=== PATIENT | female | born 1995 | race Caucasian/White ===

== ENCOUNTER 2022-01-25 11:52 | Inpatient (IN) | payer OTHER ==
[2022-01-25] MEDS ORDERED: Nalbuphine HCl 10 MG/ 1ML Amp IVPUSH PRN (12:01)
[2022-01-25] MEDS ORDERED: Ondansetron 4 MG/2 ML SDV IVPUSH PRN (12:01)
[2022-01-25] MEDS ORDERED: Oxytocin/Lactated Ringers 10 UNIT/1,000 ML BAG IV SCH (12:15)
[2022-01-25] MEDS: Lactated Ringers 1,000 ML IV SCH ×2 (12:28→18:50)
[2022-01-25] MEDS: Oxytocin/Lactated Ringers 10 UNIT/1,000 ML BAG IV SCH (12:29)
[2022-01-25] MEDS ORDERED: ePHEDrine 50 MG/ML SDV IVPUSH PRN (15:04)
[2022-01-25] MEDS ORDERED: diphenhydrAMINE 50 MG/ML SDV IVPUSH PRN (15:04)
[2022-01-25] MEDS: fentaNYL 100 MCG/2 ML SDV EPIDUR PRN (18:02)
[2022-01-25] MEDS: Bupivacaine/fentaNYL/NS 100 ML Bag EPIDUR PRN (18:02)
[2022-01-25] MEDS ORDERED: Sodium Chloride 0.9% 10 ML Syringe FLUSH SCH (21:00)
[2022-01-26] MEDS: Oxytocin/Lactated Ringers 10 UNIT/1,000 ML BAG IV SCH (02:26)
[2022-01-26] MEDS: Lactated Ringers 1,000 ML IV SCH ×2 (02:27→02:28)
[2022-01-26] MEDS: Bupivacaine/fentaNYL/NS 100 ML Bag EPIDUR PRN ×2 (02:58→12:27)
[2022-01-26] MEDS: fentaNYL 100 MCG/2 ML SDV EPIDUR PRN (03:07)
[2022-01-26] MEDS ORDERED: Acetaminophen 325 MG Tab PO ONE (03:13)
[2022-01-26] MEDS ORDERED: Oxytocin/Lactated Ringers 20 UNIT/1,000 ML BAG IV SCH (10:00)
[2022-01-26] MEDS ORDERED: Docusate Sodium 100 MG Cap PO PRN (15:59)
[2022-01-26] MEDS ORDERED: Witch Hazel Medicated Pads 40/Jar TOP PRN (15:59)
[2022-01-26] MEDS ORDERED: Acetaminophen/oxyCODONE 325-5 MG Tab PO PRN (15:59)
[2022-01-26] MEDS ORDERED: Benzocaine/Menthol 20%-0.5% Spray 78 GM Cannister TOP PRN (15:59)
[2022-01-26] MEDS ORDERED: Bupivacaine 0.25% 10 ML SDV ONE (16:00)
[2022-01-26] MEDS: Ibuprofen 600 MG Tab PO PRN ×2 (16:25→20:33)
[2022-01-26] MEDS: Acetaminophen 325 MG Tab PO PRN (20:35)
[2022-01-27] MEDS: Acetaminophen 325 MG Tab PO PRN (01:43)
[2022-01-27] MEDS: Ibuprofen 600 MG Tab PO PRN ×3 (01:44→15:50)
[2022-01-27] MEDS: Calcium Carbonate 600 MG Tab PO SCH (08:38)
[2022-01-27] MEDS: Ferrous Sulfate 324 MG Tab.EC PO SCH (08:38)
[2022-01-27] MEDS: Prenatal Multivitamin with Calcium/Folic Acid/Iron Tab PO SCH (08:38)
[2022-01-28] MEDS: Ibuprofen 600 MG Tab PO PRN ×2 (02:19→08:09)
[2022-01-28] MEDS: Ferrous Sulfate 324 MG Tab.EC PO SCH (10:14)
[2022-01-28] MEDS: Calcium Carbonate 600 MG Tab PO SCH (10:14)
[2022-01-28] MEDS: Prenatal Multivitamin with Calcium/Folic Acid/Iron Tab PO SCH (10:15)
== END 2022-01-28 10:30 | disposition home or self-care (01) | DRG 807 ==
LOC: JD.OBCHECK 11:52 → JD.OB 11:53 → JD.OBCHECK 12:05 → JD.OB 12:06 → OBSVTOIN 01-26 15:16 → JD.OB 01-26 15:17
PROVIDERS: ADMIT Obstetrics & Gynecology; ATTEND Obstetrics & Gynecology
PROC: 10907ZC Drainage of Amniotic Fluid, Therapeutic from Products of Conception, Via Natural or Artificial Opening (ICD-10-PCS; principal; 2022-01-26)
PROC: 0KQM0ZZ Repair Perineum Muscle, Open Approach (ICD-10-PCS; principal; 2022-01-26)
PROC: 3E0R3BZ Introduction of Anesthetic Agent into Spinal Canal, Percutaneous Approach (ICD-10-PCS; principal; 2022-01-26)
PROC: 10E0XZZ Delivery of Products of Conception, External Approach (ICD-10-PCS; principal; 2022-01-26)
PROC: 0U7C7ZZ Dilation of Cervix, Via Natural or Artificial Opening (ICD-10-PCS; principal; 2022-01-26)
PROC: 10H07YZ Insertion of Other Device into Products of Conception, Via Natural or Artificial Opening (ICD-10-PCS; principal; 2022-01-26)
PROC: 3E033VJ Introduction of Other Hormone into Peripheral Vein, Percutaneous Approach (ICD-10-PCS; principal; 2022-01-26)
DX: O62.2 Other uterine inertia (principal); Z37.0 Single live birth; Z3A.39 39 weeks gestation of pregnancy; O77.0 Labor and delivery complicated by meconium in amniotic fluid; O69.81X0 Labor and delivery complicated by cord around neck, without compression, not applicable or unspecified; O70.1 Second degree perineal laceration during delivery; Z91.018 Allergy to other foods
CPT/HCPCS: 36415; 51702; 59025; 59409; 85025; 86592; A9270-GY; C1726; J2590; J3010; J3490; J7120

== ENCOUNTER 2024-03-07 11:56 | Inpatient (IN) | payer BC, OTHER ==
[~2024-03-07 11:56] MED LIST: Ropivacaine 0.2% PF 2 MG/ML 20 ML SDV ONE
[2024-03-07] MEDS ORDERED: Calcium Carbonate 500 MG Tab.Chew PO PRN (12:48)
[2024-03-07] MEDS ORDERED: Lidocaine 1% 50 ML MDV INJECT PRN (12:48)
[2024-03-07] MEDS ORDERED: Ondansetron 4 MG/2 ML SDV IVPUSH PRN (12:48)
[2024-03-07] MEDS ORDERED: Oxytocin/0.9 % Sodium Chloride 30 UNIT/500 ML BAG IV SCH (13:00)
[2024-03-07 13:08] LABS: BASOPHILS PERCENT AUTO 0.2 % (0.0-1.0); EOSINOPHILS PERCENT AUTO 0.3 % (0.0-6.0); HEMATOCRIT 33.1 % (37.0-47.0); HEMOGLOBIN 10.8 gm/dl (12.0-16.0); IMMATURE GRAN ABSOLUTE AUTO 0.06 K/mm3 (0.00-0.05); IMMATURE GRAN PERCENT AUTO 0.5 % (0.0-0.4); LYMPHOCYTES ABSOLUTE AUTO 1.9 K/mm3 (1.0-4.8); MEAN CORPUSCULAR HEMOGLOBIN 30.3 pg (28.0-32.0); MEAN CORPUSCULAR HGB CONC 32.6 g/dl (32.0-36.0); MEAN CORPUSCULAR VOLUME 92.7 fl (83.0-99.0); MEAN PLATELET VOLUME 12.9 fl (9.4-12.3); MONOCYTES ABSOLUTE AUTO 0.6 K/mm3 (0.0-0.8); MONOCYTES PERCENT AUTO 4.9 % (0.0-8.0); NEUTROPHILS ABSOLUTE AUTO 9.8 K/mm3 (1.8-7.7); NEUTROPHILS PERCENT AUTO 79.1 % (41.0-71.0); PLATELET COUNT,PLT 162 K/mm3 (150-400); RED BLOOD CELL COUNT 3.57 M/mm3 (4.10-5.30); WHITE BLOOD CELL COUNT,WBC 12.41 K/mm3 (3.9-11.3)
[2024-03-07] MEDS: Oxytocin/0.9 % Sodium Chloride 30 UNIT/500 ML BAG IV SCH (13:14)
[2024-03-07] MEDS: Lactated Ringers 1,000 ML IV SCH (13:14)
[2024-03-07] MEDS ORDERED: ePHEDrine 50 MG/ML SDV IVPUSH PRN (16:03)
[2024-03-07] MEDS: fentaNYL 100 MCG/2 ML SDV EPIDUR PRN (16:13)
[2024-03-07] MEDS: Bupivacaine/fentaNYL/NS 100 ML Bag EPIDUR PRN (16:15)
[2024-03-07] MEDS: diphenhydrAMINE 50 MG/ML SDV IVPUSH PRN (17:45)
[2024-03-07] MEDS: diphenhydrAMINE 50 MG/ML SDV IVPUSH ONE (20:39)
[2024-03-07] MEDS ORDERED: Acetaminophen 325 MG Tab PO PRN (22:17)
[2024-03-07] MEDS ORDERED: Benzocaine/Menthol 20%-0.5% Spray 78 GM Cannister TOP PRN (22:17)
[2024-03-07] MEDS: Ibuprofen 600 MG Tab PO SCH (22:17)
[2024-03-07] MEDS ORDERED: Docusate Sodium 100 MG Cap PO PRN (22:17)
[2024-03-07] MEDS: Witch Hazel Medicated Pads 40/Jar TOP PRN (23:33)
[2024-03-08] MEDS: Ibuprofen 600 MG Tab PO SCH (20:00)
== END 2024-03-09 10:02 | disposition home or self-care (01) | DRG 560 ==
LOC: JD.OB 11:56 → OBSVTOIN 20:57 → JD.OB 20:57
PROVIDERS: ADMIT Family Medicine; ATTEND Family Medicine
PROC: 10E0XZZ Delivery of Products of Conception, External Approach (ICD-10-PCS; principal; 2024-03-07)
PROC: 3E033VJ Introduction of Other Hormone into Peripheral Vein, Percutaneous Approach (ICD-10-PCS; 2024-03-07)
PROC: 10907ZC Drainage of Amniotic Fluid, Therapeutic from Products of Conception, Via Natural or Artificial Opening (ICD-10-PCS; 2024-03-07)
PROC: 3E0R3BZ Introduction of Anesthetic Agent into Spinal Canal, Percutaneous Approach (ICD-10-PCS; 2024-03-07)
PROC: 00HU33Z Insertion of Infusion Device into Spinal Canal, Percutaneous Approach (ICD-10-PCS; 2024-03-07)
DX: O77.0 Labor and delivery complicated by meconium in amniotic fluid (principal); Z37.0 Single live birth; O76 Abnormality in fetal heart rate and rhythm complicating labor and delivery; Z3A.39 39 weeks gestation of pregnancy; Z91.040 Latex allergy status; Z91.018 Allergy to other foods; Z86.16 Personal history of COVID-19
CPT/HCPCS: 36415; 51701; 51702; 59025; 59409; 85025; 86592; A9270-GY; C1758; J1200; J2795; J3010; J3490; J7120; J7999